=== PATIENT | male | born 1975 | race Caucasian/White ===

== ENCOUNTER 2019-06-14 15:43 | Inpatient (IN) | payer OTHER ==
[~2019-06-14] VITALS: Ht 182.9 cm; Wt 90.1 kg
[2019-06-14 16:27] LABS: BASOPHILS ABSOLUTE AUTO 0.05 K/mm3 (0.00-0.23); BASOPHILS PERCENT AUTO 1 % (0-2); EOSINOPHILS ABSOLUTE AUTO 0.19 K/mm3 (0.00-0.68); EOSINOPHILS PERCENT AUTO 2 % (0-6); Hematocrit 51.9 % (37.0-53.0); Hemoglobin 17.6 g/dL (13.5-17.5); IMMATURE GRAN ABSOLUTE AUTO 0.03 K/mm3 (0.00-0.10); IMMATURE GRAN PERCENT AUTO 0 % (0-1); LYMPHOCYTES ABSOLUTE AUTO 3.03 K/mm3 (0.84-5.20); LYMPHOCYTES PERCENT AUTO 29 % (21-46); MONOCYTES ABSOLUTE AUTO 1.49 K/mm3 (0.16-1.47); MONOCYTES PERCENT AUTO 14 % (4-13); Mean Corpuscular HGB 33.5 pg (26.0-34.0); Mean Corpuscular HGB Conc 33.9 g/dL (31.5-36.5); Mean Corpuscular Volume 99 fL (80-100); Mean Platelet Volume 11.5 fL (9.1-12.4); NEUTROPHILS ABSOLUTE AUTO 5.63 K/mm3 (1.96-9.15); NEUTROPHILS PERCENT AUTO 54 % (41-73); Platelet Count 222 K/mm3 (150-400); RDW Coefficient Variation 12.7 % (11.7-14.2); RDW Standard Deviation 46.1 fL (35.1-46.3); Red Blood Cell Count 5.26 M/mm3 (4.30-5.90); White Blood Cell Count 10.42 K/mm3 (4.00-11.30)
[2019-06-14 16:35] LABS: Chloride (POC) 103 mmol/L (98-108); Creatinine (POC) 1.1 mg/dL (0.8-1.3); Glucose (ISTAT POC) 137 mg/dL (70-99); Hemoglobin (POC) 18.4 g/dL (13.5-17.5); Potassium (POC) 3.5 mmol/L (3.5-5.5); Sodium (POC) 139 mmol/L (135-148); Total CO2 (POC) 21 mmol/L (21-32)
[2019-06-14 16:43] LABS: Alanine Aminotransfer (ALT/SGP 56 U/L (12-78); Albumin, Blood 4.2 g/dL (3.4-5.0); Albumin/Globulin Ratio 1.1 (0.8-1.8); Alk Phos 122 U/L (50-136); Anion Gap 7 mmol/L (6-16); Aspartate Aminotrans (AST/SGOT 37 U/L (12-37); Bilirubin, Total 0.7 mg/dL (0.1-1.0); Blood Urea Nitrogen 9 mg/dL (8-24); Bun/Creatinine Ratio 8.6 (12.0-20.0); CO2, Blood 25 mmol/L (21-32); Calcium, Blood 9.1 mg/dL (8.5-10.1); Chloride, Blood 106 mmol/L (98-108); Creatinine, Blood 1.05 mg/dL (0.60-1.20); Globulin, Blood 3.9 g/dL (2.2-4.0); Glomerular Filtration Rate >60 (60-); Glucose, Blood 140 mg/dL (70-99); Potassium, Blood 3.7 mmol/L (3.5-5.5); Sodium, Blood 138 mmol/L (136-145); Total Protein, Blood 8.1 g/dL (6.4-8.2); Troponin I <0.015 ng/mL (0.000-0.040)
--- NOTE | 2019-06-14 18:17 | NUR ---
PT ARRIVED TO ICU 3 VIA BED, ALERT AND ORIENTED. TR BAND ON R ARM. RADIAL SITE IS C/D/I, SOFT WITH NO HEMATOMA. PT GIVEN EDUCATION ON ACTIVITY RESTRICTIONS REGARDING USE OF R ARM. PT ALSO GIVEN EDUCATION ON SAFETY RISKS OF DRIVING SELF TO HOSPITAL WHILE HAVING CHEST PAIN. PT VERBALIZES UNDERSTANDING. PT IS A CURRENT SMOKER AND PLANS TO QUIT, BUT HE REFUSED ANY CESSATION MATERIALS. PT'S EX- WITH HIM AT THE BEDSIDE. DR. SIMS CAME BY AND ANSWERED ALL QUESTIONS. CONTINUING TO MONITOR.
--- NOTE | 2019-06-14 22:14 | NUR ---
BLOOD PRESSURE: PATIENT BLOOD PRESSURE STEADILY INCREASING SINCE START OF SHIFT, MAP HIGH 160'S, ORDERED MEDICATIONS GIVEN WITHOUT RESOLUTION. AUTOMOTIVE TECHNICIAN BETHANY NOTIFIED AND ORDERS RECIEVED. SEE EMAR FOR MEDICATION ADMINISTRATION.
--- NOTE | 2019-06-15 01:00 | NUR ---
ASSUMED PT CARE FROM LUISA BERNAL PT SITTING UP IN BED. ALERT AND ORIENTED AND ABLE TO MAKE HIS NEEDS KNOWN. SYSTOLIC BLOOD PRESSURES ELEVATED 170-200; DENIES ANY CHEST PAIN. PER REPORTING OFF RN, PT HAD RECEIVED LOPRESSOR 25MG PO, VASOTEC 1.258MG IV, AND HYDRALAZINE 20MG IV FOR ELEVATED BP'S; UNEFFECTIVE. AT TIME OF SHIFT HAND OFF PT WAS C/O SOB AND ANXIETY. ASKED PT WHAT HE DOES AT HOME AND HE STATED, "I WALK AROUND." ASKED PT IF HE DRINKS ON A DAILY BASIS AND PT STATED, "THREE VODKA'S A DAY." WHEN ASKED WHEN HIS LAST DRINK WAS PT STATED, "YESTERDAY." EXPLAINED TO PT THAT MAY BE WHY HIS BP'S ARE ELEVATED AND WHY HE IS FEELING ANXIOUS. PT ALSO STATES HE HAS "SOCIAL ANXIETY" WELL. INFORMED PT I'D GIVE THE DOCTOR A CALL AN UPDATE. ALSO EXPLAINED THE POSSIBILITY OF ETOH WITHDRAWALS; PT VERBALIZED UNDERSTANDING. CALL LIGHT WITHIN REACH; OBTAINED A FAN FOR PT'S SOB/ANXIETY, WHICH HE STATED HELPED A LITTLE.
--- NOTE | 2019-06-15 01:29 | NUR ---
CALLED DR. SIMS RELATED TO PT FEELING ANXIOUS, SOB, AND ELEVATED BP OF SYSTOLIC GREATER THAN 190. CIWA PERFORMED WITH A SCORE OF 9. PT STATES HE DRINKS THREE VODKA'S PER DAY WITH LAST DRINK BEING YESTERDAY. ORDERS FOR HOSPITALIST CONSULT FOR ETOH WITHDRAWALS.
--- NOTE | 2019-06-15 02:04 | NUR ---
DR. COCHRAN AT BEDSIDE
--- NOTE | 2019-06-15 06:20 | NUR ---
END OF SHIFT SUMMARY PT FINISHED AGGRASTAT GTT AT 0615 THIS AM. BEGAN RELEASING PRESSURE FROM CUFF AT THAT TIME D/T ELEVATED BP'S T/O NIGHT. NO HEMATOMA NOTED, SENSATION INTACT TO DISTAL FINGERS, AND CAPILLARY REFILL REMAINS <3SEC. CIWA NOTED TO BE HIGH 9; MEDICATED WITH 25MG OF LIBRIUM AND 1MG OF ATIVAN; EFFECTIVE. LAST CIWA WAS NOTED TO BE 5. PT DENIED CHEST PAIN ALL SHIFT. BLOOD PRESSURES APPEARED TO IMPROVE FROM HIGH SBP 170-200 DOWN TO SBP 160-170 AFTER LIBRIUM AND ATIVAN ADMINISTRATION. VISITORS IN T/O NIGHT. CALL LIGHT WITHIN REACH; PT ABLE TO MAKE HIS NEEDS KNOWN.
[2019-06-15 07:27] LABS: Hematocrit 46.5 % (37.0-53.0); Hemoglobin 15.8 g/dL (13.5-17.5); Mean Corpuscular HGB 33.1 pg (26.0-34.0); Mean Corpuscular Volume 98 fL (80-100); Mean Platelet Volume 11.2 fL (9.1-12.4); Platelet Count 162 K/mm3 (150-400); RDW Standard Deviation 46.4 fL (35.1-46.3); Red Blood Cell Count 4.77 M/mm3 (4.30-5.90); White Blood Cell Count 10.45 K/mm3 (4.00-11.30)
--- NOTE | 2019-06-15 07:30 | NUR ---
ASSUMED CARE REPORT FROM LUISA CAIN. TR BAND DEFLATED BUT IN PLACE. NO SIGN OF HEMATOMA OR OOZING
[2019-06-15 07:45] LABS: Anion Gap 6 mmol/L (6-16); Blood Urea Nitrogen 12 mg/dL (8-24); Bun/Creatinine Ratio 11.4 (12.0-20.0); CHOL/HDL RATIO 6.2; CO2, Blood 24 mmol/L (21-32); Chloride, Blood 108 mmol/L (98-108); Cholesterol 223 mg/dL (50-200); Creatinine, Blood 1.05 mg/dL (0.60-1.20); Glomerular Filtration Rate >60 (60-); Glucose, Blood 103 mg/dL (70-99); HDL Cholesterol 36 mg/dL (>39); LDL/HDL RATIO Unable to Calculate; Low Density Lipoprotein Chol Unable to Calculate mg/dL (0-110); Magnesium, Blood 2.2 mg/dL (1.6-2.4); Potassium, Blood 3.9 mmol/L (3.5-5.5); Sodium, Blood 138 mmol/L (136-145); Triglycerides 425 mg/dL (30-160); Very Low Density Lipoprot Chol Unable to Calculate mg/dL (6-32)
--- NOTE | 2019-06-15 08:06 | NUR ---
MD VISITS DR. HOPE AND IN. ORDERS RECEIVED AND IMPLEMENTED
--- NOTE | 2019-06-15 09:16 | NUR ---
PATIENT ADVISED TO PURCHASE BP CUFF FOR HOME D/T NEW BP MEDS. SUFFERS FROM ANXIETY AND USES ALCOHOL AT HOME TO COPE. SCHEDULED LIBRIUM HERE WELL PRN. CHANGED TO PCU STATUS AND WILL BE MOVING TO PCU 5 AFTER REPORT
--- NOTE | 2019-06-15 09:40 | NUR ---
ECHOCARDIOGRAM COMPLETED
--- NOTE | 2019-06-15 10:44 | NUR ---
REPORT GIVEN TO LUISA RAYMOND. PT TX'D IN WC BY [facility]HELSEA TO PCU 3. ALL BELONGINGS WITH PATIENT. ACCOMP BY MOTHER AND SON
--- NOTE | 2019-06-15 15:10 | NUR ---
Per admit trigger, I met with Eben to offer information/education about Advanced Directive. After education of the benefits and purpose of ACP, he told me he is going through divorce and understands having a medical spokesperson other than his would be beneficial. Eben wants to think about his choices for awhile. Advised I would remain available.
--- NOTE | 2019-06-15 17:45 | NUR ---
SHIFT SUMMARY 1045 PT RECEIVED FROM ICU. ALERT AND ORIENTED X3. RIGHT WRIST SOFT, NO BLEED OR HEMATOMA, BANDAID CDI, ARMBOARD IN PLACE. PT AMBULATING INDEPENDENTLY IN ROOM. C/O HEADACHE THIS AFTERNOON, MEDICATED WITH PRN PAIN MEDS. NO SIGNS OF ALCOHOL WITHDRAWAL THIS SHIFT.
--- NOTE | 2019-06-16 06:12 | NUR ---
SHIFT SUMMARY PT RESTING IN ROOM COMFORTABLY AT THIS TIME. NO ACUTE CHANGES IN STATUS T/O NIGHT. PT WAS IND IN ROOM AND WENT ON 2 WALKS T/O NIGHT TO "STRETCH HIS LEGS". PT DID NOT LEAVE SECOND FLOOR, REMAINED W/IN REACH OF TELE MONITOR. RESP EVEN UNLABORED ON RA W/ SATS >95%. DENIES CP, OR SOB. CALL LIGHT IN REACH.
[2019-06-16] MEDS ORDERED: AMLO10 PO (08:06)
[2019-06-16] MEDS ORDERED: ATOR40TA PO (08:06)
[2019-06-16] MEDS ORDERED: Prinivil10 MG PO (08:06)
[2019-06-16] MEDS ORDERED: ASPI81CH PO (08:06)
[2019-06-16] MEDS ORDERED: TICA90TA PO (08:07)
[2019-06-16] MEDS ORDERED: METO25 PO (08:07)
--- NOTE | 2019-06-16 10:30 | NUR ---
SHIFT SUMMARY PT A&Ox4. CALM AND COOPERATIVE WITH CARE. PT UP IND IN ROOM, RESTING IN BED DURING SHIFT. PT DENIES CHEST PAIN, GENERALIZED PAIN, SOB, DIZZINESS, NUM/T AND N/V. RIGHT RADIAL SITE INTACT, NO S/SX BLEEDING OR HEMATOMA; PT DENIES PAIN AND NUM/T. CAP REFILL WNL. >94% ON RA, BREATHING EVEN AND UNLABORED, LS DIM T/O. VSS. NO OTHER CHANGES NOTED DURING SHIFT. PT EDUCATED ON DISCHARGE INSTRUCTIONS, MEDCATIONS, FOLLOW UP APPOINTMENTS AND POST CARDIAC CATH CARE. PRESCRIPTIONS FAXED TO [facility] PER PT REQUEST. PT LEFT ROOM ON FOOT AT 1008. PT STABLE UPON DISCHARGE.
== END 2019-06-16 10:11 | disposition home or self-care (01) | DRG 247 ==
LOC: ER 15:43 → PCU 16:14 → ICUE 16:14 → ICUW 16:14 → ICUE 16:53 → PCU 06-15 10:44
PROVIDERS: Physician Assistant; ADMIT Internal Medicine Interventional Cardiology
PROC: 027034Z Dilation of Coronary Artery, One Artery with Drug-eluting Intraluminal Device, Percutaneous Approach (ICD-10-PCS; principal; 2019-06-14)
PROC: 4A023N7 Measurement of Cardiac Sampling and Pressure, Left Heart, Percutaneous Approach (ICD-10-PCS; 2019-06-14)
PROC: B2111ZZ Fluoroscopy of Multiple Coronary Arteries using Low Osmolar Contrast (ICD-10-PCS; 2019-06-14)
PROC: B2151ZZ Fluoroscopy of Left Heart using Low Osmolar Contrast (ICD-10-PCS; 2019-06-14)
DX: I21.21 ST elevation (STEMI) myocardial infarction involving left circumflex coronary artery (principal); F10.239 Alcohol dependence with withdrawal, unspecified; G43.909 Migraine, unspecified, not intractable, without status migrainosus; F17.210 Nicotine dependence, cigarettes, uncomplicated; E78.5 Hyperlipidemia, unspecified; Z79.82 Long term (current) use of aspirin
CPT/HCPCS: 36415; 71045; 80047; 80048; 80053; 80061; 83036; 83735; 84484; 85014; 85025; 85027; 93005; 93010; 93306; 93458; 96374; 96375; 99152; 99153; 99285-25; A9270; C1725; C1769; C1874; C1887; C1894; C9600; C9606; J0360; J1644; J2060; J2250; J3010; J3246; J7030; Q9967

== ENCOUNTER → 2020-01-08 | Outpatient (CLI) | payer OTHER ==
[~2020-01-08] MED LIST: AMLO10 PO; ASPI81CH PO; ATOR40TA PO; METO25 PO; Prinivil10 MG PO; TICA90TA PO
== END | disposition home or self-care (01) ==
LOC: LAB 13:23 → LAB SHORT 13:23
DX: I25.10 Atherosclerotic heart disease of native coronary artery without angina pectoris (principal); I10 Essential (primary) hypertension; F41.8 Other specified anxiety disorders
CPT/HCPCS: 82043

== ENCOUNTER 2020-02-07 11:58 | Emergency (ER) | payer OTHER ==
[~2020-02-07] VITALS: Ht 177.8 cm; Wt 79.4 kg
[2020-02-07] MEDS ORDERED: VENL75ER PO (12:21)
[2020-02-07] MEDS ORDERED: PRAZ5 PO (12:21)
[2020-02-07 12:41] LABS: BASOPHILS ABSOLUTE AUTO 0.01 K/mm3 (0.00-0.23); BASOPHILS PERCENT AUTO 0 % (0-2); EOSINOPHILS ABSOLUTE AUTO 0.06 K/mm3 (0.00-0.68); EOSINOPHILS PERCENT AUTO 1 % (0-6); Hematocrit 47.3 % (37.0-53.0); Hemoglobin 15.5 g/dL (13.5-17.5); IMMATURE GRAN ABSOLUTE AUTO 0.02 K/mm3 (0.00-0.10); IMMATURE GRAN PERCENT AUTO 0 % (0-1); LYMPHOCYTES ABSOLUTE AUTO 1.74 K/mm3 (0.84-5.20); LYMPHOCYTES PERCENT AUTO 28 % (21-46); MONOCYTES ABSOLUTE AUTO 0.66 K/mm3 (0.16-1.47); MONOCYTES PERCENT AUTO 11 % (4-13); Mean Corpuscular HGB 31.3 pg (26.0-34.0); Mean Corpuscular HGB Conc 32.8 g/dL (31.5-36.5); Mean Corpuscular Volume 95 fL (80-100); Mean Platelet Volume 11.2 fL (9.1-12.4); NEUTROPHILS ABSOLUTE AUTO 3.74 K/mm3 (1.96-9.15); NEUTROPHILS PERCENT AUTO 60 % (41-73); Platelet Count 186 K/mm3 (150-400); RDW Coefficient Variation 12.6 % (11.7-14.2); RDW Standard Deviation 44.6 fL (35.1-46.3); Red Blood Cell Count 4.96 M/mm3 (4.30-5.90); White Blood Cell Count 6.23 K/mm3 (4.00-11.30)
[2020-02-07 12:52] LABS: Alanine Aminotransfer (ALT/SGP 27 U/L (12-78); Albumin, Blood 4.5 g/dL (3.4-5.0); Albumin/Globulin Ratio 1.4 (0.8-1.8); Alk Phos 86 U/L (50-136); Anion Gap 5 mmol/L (6-16); Aspartate Aminotrans (AST/SGOT 12 U/L (12-37); Bilirubin, Total 0.6 mg/dL (0.1-1.0); Blood Urea Nitrogen 10 mg/dL (8-24); Bun/Creatinine Ratio 12.3 (12.0-20.0); CO2, Blood 28 mmol/L (21-32); Calcium, Blood 10.1 mg/dL (8.5-10.1); Chloride, Blood 106 mmol/L (98-108); Creatinine, Blood 0.81 mg/dL (0.60-1.20); Globulin, Blood 3.2 g/dL (2.2-4.0); Glomerular Filtration Rate >60 (60-); Glucose, Blood 109 mg/dL (70-99); Potassium, Blood 3.7 mmol/L (3.5-5.5); Sodium, Blood 139 mmol/L (136-145); Total Protein, Blood 7.7 g/dL (6.4-8.2); Troponin I <0.015 ng/mL (0.000-0.040)
[2020-02-07] MEDS ORDERED: Ativan1 MG PO (15:56)
== END 2020-02-07 16:02 | disposition home or self-care (01) ==
LOC: ER 11:58
PROVIDERS: Nurse Practitioner
DX: R07.9 Chest pain, unspecified (principal); K21.9 Gastro-esophageal reflux disease without esophagitis; Z87.81 Personal history of (healed) traumatic fracture; F17.200 Nicotine dependence, unspecified, uncomplicated; Z79.82 Long term (current) use of aspirin; Z79.899 Other long term (current) drug therapy
CPT/HCPCS: 36415; 71046; 80053; 84484; 85025; 93005; 93010; 99285-25

== ENCOUNTER 2023-07-29 02:47 | Observation (INO) | payer OTHER ==
[~2023-07-29] VITALS: Ht 180.3 cm; Wt 79.5 kg
[~2023-07-29 02:47] MED LIST changes: +Ativan1 MG PO; +PRAZ5 PO; +VENL75ER PO
[2023-07-29 03:12] LABS: BASOPHILS ABSOLUTE AUTO 0.04 K/mm3 (0.00-0.23); BASOPHILS PERCENT AUTO 0 % (0-2); EOSINOPHILS ABSOLUTE AUTO 0.08 K/mm3 (0.00-0.68); EOSINOPHILS PERCENT AUTO 1 % (0-6); Hematocrit 47.5 % (37.0-53.0); Hemoglobin 15.7 g/dL (13.5-17.5); IMMATURE GRAN ABSOLUTE AUTO 0.03 K/mm3 (0.00-0.10); IMMATURE GRAN PERCENT AUTO 0 % (0-1); LYMPHOCYTES ABSOLUTE AUTO 1.78 K/mm3 (0.84-5.20); LYMPHOCYTES PERCENT AUTO 15 % (21-46); MONOCYTES ABSOLUTE AUTO 0.88 K/mm3 (0.16-1.47); MONOCYTES PERCENT AUTO 7 % (4-13); Mean Corpuscular HGB 30.1 pg (26.0-34.0); Mean Corpuscular HGB Conc 33.1 g/dL (31.5-36.5); Mean Corpuscular Volume 91 fL (80-100); Mean Platelet Volume 10.4 fL (9.1-12.4); NEUTROPHILS ABSOLUTE AUTO 9.06 K/mm3 (1.96-9.15); NEUTROPHILS PERCENT AUTO 76 % (41-73); Platelet Count 214 K/mm3 (150-400); RDW Coefficient Variation 12.4 % (11.7-14.2); RDW Standard Deviation 41.3 fL (35.1-46.3); Red Blood Cell Count 5.22 M/mm3 (4.30-5.90); White Blood Cell Count 11.87 K/mm3 (4.00-11.30)
[2023-07-29 03:24] LABS: Albumin, Blood 3.7 g/dL (3.4-5.0); Bilirubin, Total 0.3 mg/dL (0.1-1.0); Bun/Creatinine Ratio 11.7 (12.0-20.0); Calcium, Blood 8.9 mg/dL (8.5-10.1); Creatinine, Blood 1.11 mg/dL (0.60-1.20); Globulin, Blood 3.6 g/dL (2.2-4.0); Potassium, Blood 3.8 mmol/L (3.5-5.5); Total Protein, Blood 7.3 g/dL (6.4-8.2)
[2023-07-29 05:27] LABS: BASOPHILS ABSOLUTE AUTO 0.04 K/mm3 (0.00-0.23); BASOPHILS PERCENT AUTO 0 % (0-2); EOSINOPHILS ABSOLUTE AUTO 0.05 K/mm3 (0.00-0.68); EOSINOPHILS PERCENT AUTO 1 % (0-6); Hematocrit 47.1 % (37.0-53.0); Hemoglobin 15.6 g/dL (13.5-17.5); IMMATURE GRAN ABSOLUTE AUTO 0.03 K/mm3 (0.00-0.10); IMMATURE GRAN PERCENT AUTO 0 % (0-1); LYMPHOCYTES ABSOLUTE AUTO 1.84 K/mm3 (0.84-5.20); LYMPHOCYTES PERCENT AUTO 17 % (21-46); MONOCYTES ABSOLUTE AUTO 0.83 K/mm3 (0.16-1.47); MONOCYTES PERCENT AUTO 8 % (4-13); Mean Corpuscular HGB 30.2 pg (26.0-34.0); Mean Corpuscular HGB Conc 33.1 g/dL (31.5-36.5); Mean Corpuscular Volume 91 fL (80-100); Mean Platelet Volume 10.3 fL (9.1-12.4); NEUTROPHILS ABSOLUTE AUTO 7.79 K/mm3 (1.96-9.15); NEUTROPHILS PERCENT AUTO 74 % (41-73); Platelet Count 199 K/mm3 (150-400); RDW Coefficient Variation 12.4 % (11.7-14.2); RDW Standard Deviation 41.6 fL (35.1-46.3); Red Blood Cell Count 5.16 M/mm3 (4.30-5.90); White Blood Cell Count 10.58 K/mm3 (4.00-11.30)
[2023-07-29 05:40] LABS: Anti-Xa UFH, PHA Monitoring <0.10 IU/mL; International Normalized Ratio 0.99; Prothrombin Time Results 10.4 Sec (9.7-11.5)
[2023-07-29 05:51] LABS: Alanine Aminotransfer (ALT/SGP 31 U/L (12-78); Albumin, Blood 3.6 g/dL (3.4-5.0); Alk Phos 93 U/L (50-136); Anion Gap 2 mmol/L (6-16); Aspartate Aminotrans (AST/SGOT 28 U/L (12-37); Bilirubin, Total 0.4 mg/dL (0.1-1.0); Blood Urea Nitrogen 13 mg/dL (8-24); Bun/Creatinine Ratio 13.7 (12.0-20.0); CHOL/HDL RATIO 6.8; CO2, Blood 27 mmol/L (21-32); Chloride, Blood 109 mmol/L (98-108); Cholesterol 205 mg/dL (50-200); Creatinine, Blood 0.95 mg/dL (0.60-1.20); Globulin, Blood 3.6 g/dL (2.2-4.0); Glomerular Filtration Rate 100 (60-); Glucose, Blood 110 mg/dL (70-99); HDL Cholesterol 30 mg/dL (>39); LDL/HDL RATIO 3.6; Low Density Lipoprotein Chol 108 mg/dL (0-110); Potassium, Blood 3.9 mmol/L (3.5-5.5); Sodium, Blood 138 mmol/L (136-145); Total Protein, Blood 7.2 g/dL (6.4-8.2); Triglycerides 333 mg/dL (30-160); Very Low Density Lipoprot Chol 66 mg/dL (6-32)
[2023-07-29 08:06] VITALS: BP 168/109
[2023-07-29 11:58] VITALS: BP 151/110
[2023-07-29 15:25] VITALS: BP 151/110
--- NOTE | 2023-07-29 17:52 | NUR ---
SHIFT SUMMARY; ER ADMIT THIS MORNING EARLY IN SHIFT. TRANSFERS FROM GURNEY TO BED INDEPENDANTLY. HEPARIN INFUSING WHEN ASSUMING CARE. CARDILOGY COMPLETE, WILL CONTINUE WITH MEDICAL MANAGEMENT OF NSTEMI. A/A/OX4, COOPERATIVE WITH CARE, VSS. REPOSITIONS SELF IN BED, AMBULATES TO BATHROOM WITH SBA. HEPARIN AND NS INFUSING. WILL CONTINUE TO MONITOR AND TREAT UNTIL CHANGE OF SHIFT.
[2023-07-29 20:31] VITALS: BP 145/105
--- NOTE | 2023-07-29 23:17 | NUR ---
ASSUMED PT CARE FORM RN ON DAYSHI. A&OX4. ABLE TO FOLLOW DIRECTIONS AND MAKE NEEDS KNOWN. DENIES ANY SOB, O2 SATS > 92% ON RA. DENIES CHEST PAIN. HR SR IN 80'S. BP ELEVATED, DR. LOPEZ INFROMED, PRN HYPERTENTION MEDS IN EMAR, HELD PER PARAMETERS AT THIS TIME. UP TO BATHROOM WITH STEADY GAIT, POSTURE ERECT. HEPRIN GTT INFUSING PER ORDER. CALL LIGHT IN REACH. BED IN LOW POSITION.
[2023-07-30 01:02] VITALS: BP 134/99
[2023-07-30 03:33] VITALS: BP 133/86
[2023-07-30 07:20] VITALS: BP 122/84
[2023-07-30 12:21] VITALS: BP 126/86
[2023-07-30] MEDS ORDERED: ASPI81CH PO (13:54)
[2023-07-30] MEDS ORDERED: ATOR40TA PO (13:54)
[2023-07-30] MEDS ORDERED: METO25ER PO (13:55)
[2023-07-30] MEDS ORDERED: CLOP75 PO (13:55)
--- NOTE | 2023-07-30 14:48 | NUR ---
DISCHARGE UPDATE DISCHARGE PACKET GONE OVER WITH PT AT 1440. PT INFORMED THAT MEDS WERE SENT TO [facility] PER PT REQUEST. PT REQUESTED TO BE ON FOOT FOR DISCHARGE WHEN ASKED IF HE WOULD LIKE TO HAVE TRANSPORTATION ARRANGED. PT PERSONAL BELONGINGS IN BAG AND WITH PT. PT DISCHARGE PACKET IN BAG WITH PERSONAL BELONGINGS.
== END 2023-07-30 15:50 | disposition home or self-care (01) ==
LOC: ER 02:47 → PCU 02:48
PROVIDERS: Emergency Medicine; Family Medicine; ADMIT Internal Medicine
DX: I21.4 Non-ST elevation (NSTEMI) myocardial infarction (principal); I10 Essential (primary) hypertension; E78.5 Hyperlipidemia, unspecified; F17.200 Nicotine dependence, unspecified, uncomplicated; I25.2 Old myocardial infarction; I25.10 Atherosclerotic heart disease of native coronary artery without angina pectoris; F15.10 Other stimulant abuse, uncomplicated
CPT/HCPCS: 36415; 71045; 80053; 80061; 83880; 84484; 85025; 85520; 85610; 93005; 93010; 93306; 96365; 96366; 96375; 96376; 99285-25; A9270; G0378; J1644; J2270; J2405; J7030